=== PATIENT | female | born 1945 | race Caucasian/White ===

== ENCOUNTER → 2018-03-01 | Day surgery (SDC) | payer OTHER ==
[2018-02-25 12:26] LABS: BASOPHILS # (AUTO) 0.1 (0.0-0.1); BASOPHILS % 0.8 % (0.0-1.0); EOSINOPHILS # (AUTO) 0.1 (0.0-0.4); EOSINOPHILS % 0.8 % (0.0-6.0); HEMATOCRIT 48.3 % (34.2-44.1); HEMOGLOBIN 15.1 g/dL (12.0-16.0); LYMPHOCYTES # (AUTO) 2.3 (1.0-3.2); LYMPHOCYTES % 31.8 % (18.0-39.1); MEAN CORPUSCULAR HEMOGLOBIN 26.8 pg (28-32); MEAN CORPUSCULAR HGB CONC 31.3 g/dL (31-35); MEAN CORPUSCULAR VOLUME 85.8 fL (81-99); MONOCYTES # (AUTO) 0.7 (0.2-0.8); NEUTROPHILS # (AUTO) 4.1 (2.1-6.9); NEUTROPHILS % 56.5 % (38.7-80.0); PLATELET COUNT 319 x10e3/uL (140-360); RED BLOOD COUNT 5.63 x10e6/uL (3.6-5.1); RED CELL DISTRIBUTION WIDTH 13.4 % (11.7-14.4)
[2018-02-25 12:43] LABS: INR 2.47; PROTHROMBIN TIME 25.1 seconds (11.9-14.5)
[2018-02-25 12:50] LABS: ALANINE AMINOTRANSFERASE 20 IU/L (0-55); ALBUMIN/GLOBULIN RATIO 1.1 (0.8-2.0); ALKALINE PHOSPHATASE 91 IU/L (40-150); BLOOD UREA NITROGEN 7 mg/dL (7-26); BUN/CREATININE RATIO 9 (6-25); CALCIUM 9.9 mg/dL (8.4-10.2); CARBON DIOXIDE 26 mmol/L (22-29); CHLORIDE 106 mmol/L (98-107); CREATININE, SERUM 0.82 mg/dL (0.57-1.11); EST GLOMERULAR FILTRATION RATE > 60 ML/MIN (60-); GLUCOSE 102 mg/dL (74-118); SODIUM 143 mmol/L (136-145)
--- NOTE | 2018-02-25 13:18 | Diagnostic Imaging Report ---
EXAMINATION: CHEST 2 VIEWS INDICATION: \S\PREOP FOR HEART CATH PROCEDURE \[id number] \S\[id number] COMPARISON: Chest radiograph 01/29/2016 FINDINGS: PA and lateral views TUBES and LINES: None. LUNGS: Lungs are well inflated. Lungs are clear. There is no evidence of pneumonia or pulmonary edema. PLEURA: No pleural effusion or pneumothorax. HEART AND MEDIASTINUM: The cardiomediastinal silhouette is unremarkable. BONES AND SOFT TISSUES: No acute osseous lesion. Soft tissues are unremarkable. UPPER ABDOMEN: No free air under the diaphragm. IMPRESSION: No acute thoracic abnormality. Signed by: DR. Bobby Kirby MD on 02/25/2018 1:15 PM
[2018-03-01] VITALS (17 sets, daily range): BP systolic 99–138; BP diastolic 60–103
[~2018-03-01] VITALS: Ht 165.1 cm; Wt 69.9 kg
[~2018-03-01] MED LIST: CEFUROXIME500 MG PO; DIGOXIN125 MCG PO; DILTIAZEM HCL30 MG PO; FENTANYL CITRATE/PF 100MCG/2 ML INJ ONE; FEOSOL325 MG PO; HEPARIN SOD/SOD CHLORIDE 2,000 ML ONE; IOPAMIDOL 370 MG/ML 200 ML INFUS..BTL INJ ONE; LIDOCAINE HCL 2% LOCAL 20 ML VIAL ONE; LOTEMAX3.5 GM TOP; LOTEMAX5 ML; LOTEMAX5 ML OU; LOVENOX40 MG/0.4 SC; MELATONIN 5 MG1 EAC1 PO; METOPROLOL TART25 MG PO; MIDAZOLAM HCL 2 MG/2 ML VIAL ONE; NRC7.5T PO; OMEPRAZOLE20 MG PO; PRAVASTATIN SOD40 MG PO; REGLAN10 MG PO; SODIUM CHLORIDE 0.9% 1000ML 1,000 ML ONE; TEMAZEPAM15 MG PO; TYLENOL # 31 EA PO; WARFARIN SODIUM1 MG PO; WARFARIN SODIUM3 MG PO; ZOLPIDEM TARTRA10 MG PO
[2018-03-01 08:47] LABS: INR 1.25; PROTHROMBIN TIME 14.8 seconds (11.9-14.5)
--- NOTE | 2018-03-01 16:16 | Operative Report ---
DATE OF PROCEDURE: March 01, 2018 INDICATIONS: 1. Cardiomyopathy. 2. Chest pain. PROCEDURE: Cardiac catheterization. DESCRIPTION OF PROCEDURE: After informed consent, patient was brought to the cardiac catheterization laboratory and placed on the table. Both groins were painted and draped in a sterile fashion. Lidocaine injected into right groin for local anesthesia. Right femoral artery was accessed by Seldinger technique, and a 5-[place] Citizen sheath was placed in the right femoral artery. Left main artery was cannulated using a JL4 5-[place] Citizen catheter. Coronary angiogram was performed and images obtained in multiple views. Attempts were made to cannulate the right coronary artery using a 3DRC catheter, but would not cannulate, so AR1 catheter was used to cannulate the right coronary artery which was arising from the non-coronary cusp. Coronary angiogram was performed and images obtained in multiple views. REPORT: LEFT MAIN: Normal caliber and no significant stenosis noted. LEFT ANTERIOR DESCENDING: Normal caliber and there are no luminal irregularities. First diagonal branch is about a 30% proximal lesion. LEFT CIRCUMFLEX: Normal caliber. No significant stenosis noted. RIGHT CORONARY ARTERY: Normal caliber. Rises from the non-coronary as an aberrant origin from the non-coronary cusp. There is no sig stenosis. LV-GRAM: Diffuse hypokinesis of left ventricle is noted. Overall ejection fraction appears to be about 40%. HEMODYNAMICS: Aortic pressure 134/68. LV pressure 131/2. LVEDP 11. Job#: [id number] MTDD
--- OUTSIDE RECORDS SUMMARY | 2018-03-31 05:54 | XMS REPORT | Continuity of Care Document ---
Author Author Interface Organization Interface Address Unknown Phone Unavailable Problems Problem Status Onset Date Classification Date Reported Comments Source LT KNEE OA, LT KNEE PAIN Active 01/31/2018 [facility] Medications Medication Details Route Status Patient Instructions Ordering Provider Order Date Source Allergies, Adverse Reactions, Alerts Substance Category Reaction Severity Reaction type Status Date Reported Comments Source Immunizations Immunization Date Given Site Status Last Updated Comments Source Results Order Name Results Value Reference Range Date Interpretation Comments Source Knee wo contrast CT Knee wo contrast CT EXAM: CT LEFT KNEE WITHOUT CONTRAST DATE: 02/07/2018 2:42 PM CDT INDICATION: unilateral primary osteoarthritis, left knee - ct knee COMPARISON: None TECHNIQUE: Noncontract helical CT imaging of the left hip, knee, and ankle using Jose Luis protocol. Axial reformats of the hip, knee, and ankle with multiplanar reformats of the knee. DLP: 505 mGy*cm DISCUSSION: Hip: No aggressive appearing bone lesions. Mild degenerative changes of the hip joint. No excessive hip joint fluid. No soft tissue mass. Imaged pelvic muscle bulk is normal. Knee: No aggressive appearing bone lesions. Joint space narrowing of the medial compartment with associated subarticular sclerosis and osteophytes. Small osteophytes without joint space narrowing of the lateral patellofemoral compartments. Small knee joint effusion. No soft tissue mass. Imaged muscle bulk is normal. Ankle. No aggressive appearing bone lesions. Mild degenerative changes of the ankle. No excessive joint fluid. No soft tissue mass. Imaged muscle bulk is normal. No tendon malalignment or obvious tendon tear. IMPRESSION: 1. Severe osteoarthrosis of the left knee. 2. No aggressive bone lesions or soft tissue mass identified. 02/07/2018 - - This report was dictated by a Sample Box Maker/Fellow. I have personally reviewed the images as well as the Resident's interpretation and agree with the findings. Read by: Prashanth Alfred MD Resident: Prashanth Alfred MD Dictated Date/time: 02/07/18 15:54 Electronically Signed by: Stanley Soni MD 02/08/18 04 :53 FINAL REPORT [facility] Vital Signs Vital Sign Value Date Comments Source Encounters Location Location Details Encounter Type Encounter Number Reason For Visit Attending Provider ADM Date DC Date Status Source Procedures Procedure Code Date Perfomer Comments Source
--- OUTSIDE RECORDS SUMMARY | 2018-03-31 05:54 | XMS REPORT ---
Author Author [facility] Address Unknown Phone Unavailable Care Team Providers [employer] Advisor Name Role Phone YANIRA ART Unavailable Unavailable Problems This patient has no known problems. Allergies, Adverse Reactions, Alerts This patient has no known allergies or adverse reactions. Medications This patient has no known medications. Results Test Description Test Time Test Comments Text Results Atomic Results Result Comments CHEST 2 VIEWS 2018-02-25 13:14:00 [place] [id number] [place] [id number] Patient Name: DERIC STEVENSON MR #: [id number] : 1945 Age/Sex: 72/F Req #: [id number] Adm Physician: Ordered by: YANIRA ART MD Report #: [id number] Location: [facility] Room/Bed: Procedure: [id number] DX/CHEST 2 VIEWS Exam Date: 02/25/18 Exam Time: 1245 REPORT STATUS: Signed EXAMINATION: CHEST 2 VIEWS INDICATION: COMPARISON: Chest radiograph 01/28 FINDINGS: PA and lateral views TUBES and LINES: None. LUNGS: Lungs are well inflated. Lungs are clear. There is no evidence of pneumonia or pulmonary edema. PLEURA: No pleural effusion or pneumothorax. HEART AND MEDIASTINUM: The cardiomediastinal silhouette is unremarkable. BONES AND SOFT TISSUES: No acute osseous lesion. Soft tissues are unremarkable. UPPER ABDOMEN: No free air under the diaphragm. IMPRESSION: No acute thoracic abnormality. Signed by: DR. Bobby Gonzalez MD on 02/25/2018 1:15 PM Dictated By: BOBBY GONZALEZ MD 1315 Transcribed By: ALEX on 02/25/18 1315 COPY TO: YANIRA ART MD
== END | disposition home or self-care (01) ==
LOC: CATH LAB 07:04
DX: I25.10 Atherosclerotic heart disease of native coronary artery without angina pectoris (principal); I42.9 Cardiomyopathy, unspecified; E78.5 Hyperlipidemia, unspecified; I48.91 Unspecified atrial fibrillation; M19.90 Unspecified osteoarthritis, unspecified site; I10 Essential (primary) hypertension; Z01.810 Encounter for preprocedural cardiovascular examination; Z01.812 Encounter for preprocedural laboratory examination; Z01.818 Encounter for other preprocedural examination; Z79.01 Long term (current) use of anticoagulants
CPT/HCPCS: 36415 ×2; 71046; 80053; 85025; 85610 ×2; 93005; 93458; J2001; J2250; J7030; Q9967

== ENCOUNTER 2018-08-12 11:47 | Observation (INO) | payer MEDICARE, OTHER ==
[~2018-08-12] VITALS: Ht 165.1 cm; Wt 69.9 kg
[~2018-08-12 11:47] MED LIST changes: -FENTANYL CITRATE/PF 100MCG/2 ML INJ ONE; -HEPARIN SOD/SOD CHLORIDE 2,000 ML ONE; -IOPAMIDOL 370 MG/ML 200 ML INFUS..BTL INJ ONE; -LIDOCAINE HCL 2% LOCAL 20 ML VIAL ONE; -MIDAZOLAM HCL 2 MG/2 ML VIAL ONE; -SODIUM CHLORIDE 0.9% 1000ML 1,000 ML ONE
--- OUTSIDE RECORDS SUMMARY | 2018-08-12 11:51 | XMS REPORT | Continuity of Care Document ---
Author Author Gita thomas Organization Interface Address Unknown Phone Unavailable Problems Problem Status Onset Date Classification Date Reported Comments Source CHEST PAIN Active 06/18/2018 [facility] AFIB W/ RVR Active 06/18/2018 [facility] LT KNEE OA, LT KNEE PAIN Active 01/31/2018 [facility] UNSPECIFIED ATRIAL FIBRILLATION Active [facility] Medications Medication Details Route Status Patient Instructions Ordering Provider Order Date Source Allergies, Adverse Reactions, Alerts Substance Category Reaction Severity Reaction type Status Date Reported Comments Source Immunizations Immunization Date Given Site Status Last Updated Comments Source Results Order Name Results Value Reference Range Date Interpretation Comments Source Chest 1view DX Chest 1view DX Clinical Indication: - CHEST PAIN; Comparison: None FINDINGS: The portable AP single view radiograph provided for review. The exam demonstrates normal lung volumes without interstitial or airspace opacities, pleural effusions or pneumothorax. Mild atelectasis is bilateral lung bases. A linear line lateral right lower chest probably artifact The heart size and pulmonary vasculature are normal. The trachea is midline. There are no clinically significant osseous abnormalities noted. IMPRESSION: Mild bibasilar atelectasis. SL: [email or web address] 06/18/2018 - - Read by: Jamar Orozco MD Dictated Date/time: 06/18/18 05:49 Electronically Signed by: Jamar Orozco MD 06/18/18 05:50 FINAL REPORT [facility] Knee wo contrast CT Knee wo contrast [...] - This report was dictated by a Print Line Feeder/Fellow. I have personally reviewed the images as well as the Resident's interpretation and agree with the findings. Read by: Prashanth Alfred MD Resident: Prsahanth Alfred MD Dictated Date/time: 02/07/18 15:54 Electronically Signed by: Stanley Soni MD 02/08/18 04:53 FINAL REPORT [facility] Vital Signs Vital Sign Value Date Comments Source Encounters Location Location Details Encounter Type Encounter Number Reason For Visit Attending Provider ADM Date DC Date Status Source Procedures Procedure Code Date Perfomer Comments Source
[2018-08-12] MEDS ORDERED: MECLIZINE HCL 12.5 MG TAB PO ONE (12:15)
[2018-08-12] MEDS ORDERED: SODIUM CHLORIDE 0.9% 1000ML 1,000 ML IV ONE (12:15)
[2018-08-12] MEDS ORDERED: METOCLOPRAMIDE HCL 10 MG/2ML VIAL IV ONE (12:15)
[2018-08-12 12:29] LABS: BASOPHILS # (AUTO) 0.1 (0.0-0.1); BASOPHILS % 0.4 % (0.0-1.0); EOSINOPHILS # (AUTO) 0.1 (0.0-0.4); EOSINOPHILS % 0.8 % (0.0-6.0); HEMATOCRIT 45.3 % (34.2-44.1); HEMOGLOBIN 14.8 g/dL (12.0-16.0); LYMPHOCYTES # (AUTO) 1.6 (1.0-3.2); LYMPHOCYTES % 13.9 % (18.0-39.1); MEAN CORPUSCULAR HGB CONC 32.7 g/dL (31-35); MEAN CORPUSCULAR VOLUME 82.7 fL (81-99); MONOCYTES # (AUTO) 0.8 (0.2-0.8); NEUTROPHILS % 77.6 % (38.7-80.0); PLATELET COUNT 347 x10e3/uL (140-360); RED BLOOD COUNT 5.48 x10e6/uL (3.6-5.1); RED CELL DISTRIBUTION WIDTH 13.8 % (11.7-14.4)
[2018-08-12 12:50] LABS: ALANINE AMINOTRANSFERASE 27 IU/L (0-55); ALBUMIN 3.8 g/dL (3.5-5.0); ALBUMIN/GLOBULIN RATIO 1.2 (0.8-2.0); ALKALINE PHOSPHATASE 102 IU/L (40-150); ANION GAP 17.2 mmol/L (8-16); BLOOD UREA NITROGEN 11 mg/dL (7-26); BUN/CREATININE RATIO 13 (6-25); CALCIUM 9.7 mg/dL (8.4-10.2); CARBON DIOXIDE 24 mmol/L (22-29); CHLORIDE 107 mmol/L (98-107); CREATININE, SERUM 0.83 mg/dL (0.57-1.11); EST GLOMERULAR FILTRATION RATE > 60 ML/MIN (60-); GLUCOSE 147 mg/dL (74-118); MAGNESIUM 2.1 MG/DL (1.3-2.1); PHOSPHORUS 1.9 MG/DL (2.3-4.7); POTASSIUM 4.2 mmol/L (3.5-5.1); SODIUM 144 mmol/L (136-145)
[2018-08-12 13:11] LABS: THYROID STIMULATING HORMONE 2.717 uIU/mL (0.350-4.940)
[2018-08-12] MEDS ORDERED: POTASSIUM PHOSPHATE 20 MM in SODIUM CHLORIDE 0.9% 250ML 250 ML IV ONE (15:00)
[2018-08-12] MEDS ORDERED: DEXAMETHASONE SOD PHOS 10 MG/1 ML VIAL IV ONE (15:30)
[2018-08-12] MEDS ORDERED: ONDANSETRON HCL INJ 2MG/ML 2ML 2 MG/ML VIAL IV ONE (15:35)
[2018-08-12] MEDS ORDERED: SCOPOLAMINE 1.5 MG PATCH TOP ONE (15:45)
[2018-08-12] MEDS ORDERED: ONDANSETRON HCL INJ 2MG/ML 2ML 2 MG/ML VIAL IV PRN (16:15)
[2018-08-12] MEDS ORDERED: SODIUM CHLORIDE FLUSH 10 ML SYR INJ PRN (16:15)
[2018-08-12] MEDS ORDERED: SODIUM CHLORIDE 0.9% 1000ML 1,000 ML IV SCH (16:15)
[2018-08-12] MEDS ORDERED: MECLIZINE HCL 12.5 MG TAB PO PRN (16:15)
--- NOTE | 2018-08-12 16:55 | Diagnostic Imaging Report ---
EXAMINATION: Head CT HISTORY: Dizziness. COMPARISON: None. TECHNIQUE: Multidetector axial images were obtained without contrast from the foramen magnum to the vertex . The images were reconstructed using brain and bone algorithms. Thin section brain images were reformatted into coronal and sagittal planes. Image quality: Motion/streaking artifact limits the evaluation of the skull base and posterior cranial fossa. Dose modulation, iterative reconstruction, and/or weight based adjustment of the mA/kV was utilized to reduce the radiation dose to as low as reasonably achievable. FINDINGS: Parenchyma: 1. Few scattered white matter hypodensities, most likely minimal, age related chronic microvascular ischemic changes. 2. No mass or hemorrhage. No CT evidence of acute territorial vascular insult. Extra-axial spaces:No abnormal density. No extra-axial fluid collections Brain volume: Normal for age. Ventricles: No hydrocephalus or displacement. Arteries: No density suggestive of thrombus. Dural sinuses: No abnormal density. Extra-axial spaces: No abnormal density. Foramen magnum: No mass, Chiari malformation, or basilar invagination. Sella: No obvious mass. Paranasal/mastoid sinuses: Imaged portions unremarkable. Skull/Scalp: No lytic or blastic lesions. No fractures. IMPRESSION: No acute intracranial abnormalities, particularly no mass, hemorrhage or infarct. Signed by: Dr. Jesenia Bernstein M.D. on 08/12/2018 4:52 PM
[2018-08-12 20:50] VITALS: BP 120/75
--- NOTE | 2018-08-12 20:50 | NUR ---
patient is a new admit that arrived via wheelchair. patient is alert and oriented. denies pain or discomfort. patient has been helped into the bed. bed is in the lowest position and call melendez is within reach. will continue to monitor patient.
--- NOTE | 2018-08-12 21:00 | NUR ---
Patient states she takes Tamazepam at home to help her sleep. MD notified. Received new orders to restart home meds. Patient states she does not know the correct dose of her medications. States her will bring the medication list in the morning. Patient notified to hand medication list over to nurse as soon as brings in list.
[2018-08-12] MEDS ORDERED: XARELTO10 MG PO (21:51)
[2018-08-12] MEDS: TEMAZEPAM 15 MG CAP PO SCH (23:14)
[2018-08-13] VITALS (7 sets, daily range): BP systolic 99–126; BP diastolic 57–77
[2018-08-13 05:43] LABS: BASOPHILS # (AUTO) 0.1 (0.0-0.1); BASOPHILS % 0.6 % (0.0-1.0); EOSINOPHILS # (AUTO) 0.2 (0.0-0.4); EOSINOPHILS % 2.1 % (0.0-6.0); HEMATOCRIT 41.2 % (34.2-44.1); HEMOGLOBIN 13.3 g/dL (12.0-16.0); LYMPHOCYTES # (AUTO) 2.6 (1.0-3.2); LYMPHOCYTES % 30.7 % (18.0-39.1); MEAN CORPUSCULAR HEMOGLOBIN 26.9 pg (28-32); MEAN CORPUSCULAR HGB CONC 32.3 g/dL (31-35); MEAN CORPUSCULAR VOLUME 83.4 fL (81-99); MONOCYTES # (AUTO) 0.9 (0.2-0.8); MONOCYTES % 10.4 % (4.4-11.3); NEUTROPHILS # (AUTO) 4.8 (2.1-6.9); PLATELET COUNT 305 x10e3/uL (140-360); RED BLOOD COUNT 4.94 x10e6/uL (3.6-5.1); RED CELL DISTRIBUTION WIDTH 14.1 % (11.7-14.4)
[2018-08-13 06:08] LABS: ALANINE AMINOTRANSFERASE 19 IU/L (0-55); ALBUMIN 3.2 g/dL (3.5-5.0); ALBUMIN/GLOBULIN RATIO 1.1 (0.8-2.0); ALKALINE PHOSPHATASE 82 IU/L (40-150); BLOOD UREA NITROGEN 8 mg/dL (7-26); BUN/CREATININE RATIO 11 (6-25); CARBON DIOXIDE 23 mmol/L (22-29); CHLORIDE 111 mmol/L (98-107); CREATININE, SERUM 0.76 mg/dL (0.57-1.11); EST GLOMERULAR FILTRATION RATE > 60 ML/MIN (60-); GLUCOSE 96 mg/dL (74-118); SODIUM 144 mmol/L (136-145)
--- NOTE | 2018-08-13 06:49 | NUR ---
report given to day nurse. patient is resting comfortably in bed. bed is in lowest position and call melendez is within reach. will continue to monitor patient.
--- NOTE | 2018-08-13 07:31 | NUR ---
Patient resting in bed, Alert with no distress, denies any chest pain or SOB, c/o mild dizziness Call light in reach
[2018-08-13] MEDS ORDERED: MECLIZINE HCL 12.5 MG TAB PO PRN (12:15)
[2018-08-13] MEDS: MECLIZINE HCL 12.5 MG TAB PO SCH ×3 (12:51→23:59)
[2018-08-13 13:18] LABS: BILIRUBIN,URINE NEGATIVE (NEGATIVE); CLARITY,URINE CLEAR (CLEAR); COLOR,URINE STRAW (YELLOW); KETONES,URINE NEGATIVE (NEGATIVE); LEUKOCYTE ESTERASE ,URINE NEGATIVE (NEGATIVE); NITRITE,URINE NEGATIVE (NEGATIVE); PROTEIN,URINE DIPSTICK NEGATIVE (NEGATIVE); URINE UROBILINOGEN 0.2 mg/dL (0.2 - 1)
[2018-08-13 13:32] LABS: EPITHELIAL CELLS,URINE MANY /LPF; WBC,URINE (MAN) 0-5 /HPF (0-5)
[2018-08-13] MEDS ORDERED: RIVAROXABAN 10 MG TABLET PO SCH (17:00)
--- NOTE | 2018-08-13 18:38 | NUR ---
patient resting in bed, tolerated dinner, dizziness getting better she said, denies any pain, no distress noted
--- NOTE | 2018-08-13 20:25 | NUR ---
Patient is AxO x 4. Patient has no pain or distress. Call melendez within reach. Received report from day shift nurse.
[2018-08-13] MEDS: TEMAZEPAM 15 MG CAP PO SCH (21:15)
[2018-08-14] VITALS: BP 120/69
[2018-08-14 01:43] VITALS: BP 120/69
[2018-08-14 04:00] VITALS: BP 120/67
[2018-08-14] MEDS: MECLIZINE HCL 12.5 MG TAB PO SCH (05:23)
--- NOTE | 2018-08-14 07:00 | NUR ---
Received patient mid fowlers position, side rails upx2, call light within reach, family at bedside. Resting with eyes closed. Arousable to verbal stimuli. Respirations even and unlabored. Will continue to monitor.
--- NOTE | 2018-08-14 07:17 | NUR ---
REPORT WAS GIVEN TO ONCOMING NURSE. PATIENT ASLEEP, NO PAIN OR DISTRESS. CALL CHRISTIAN WITHIN REACH.
[2018-08-14 07:28] VITALS: BP 117/66
[2018-08-14 08:05] VITALS: BP 117/66
--- NOTE | 2018-08-14 08:52 | NUR ---
Met with Dr. Hilario regarding day 2 observation status, and requesting dc plan. He states he needs to see the patient, but he anticipates discharging home today.
[2018-08-14] MEDS ORDERED: LOTEPREDNOL ETABONATE(OPTH) 5 ML BTL OP SCH (09:00)
[2018-08-14] MEDS ORDERED: MECLIZINE HCL12.5 MG PO (09:41)
[2018-08-14] MEDS ORDERED: claritin PO (09:42)
[2018-08-14] MEDS ORDERED: CLINDAMYCIN HC150 MG PO (09:43)
[2018-08-14] MEDS ORDERED: CIPROFLOXACIN-DEXAMETHASONE (OTIC) 7.5 ML BOTTLE OT SCH (09:45)
[2018-08-14] MEDS ORDERED: CLINDAMYCIN HCL 150 MG CAP PO ONE (09:45)
[2018-08-14] MEDS ORDERED: LORATADINE 10 MG TAB PO SCH (09:45)
[2018-08-14] MEDS ORDERED: CEFTRIAXONE SOD 1 GM/NS 50 ML 50 ML IV SCH (10:00)
--- NOTE | 2018-08-14 11:00 | NUR ---
left AC IV discontinued. No signs of infiltration noted. Taken via wheelchair by PCT to personal car. Accompanied by . AAOX4 to time, person, place, situation. Respirations even and unlabored. RX, discharge instructions and all personal belongings taken with patient.
--- NOTE | 2018-08-14 11:01 | Discharge Summary ---
PRIMARY CARE PHYSICIAN: Dr. Leland Hill. FINAL DIAGNOSES 1. Benign positional vertigo symptoms. 2. Ear infection. 3. Baseline pacemaker pacing. SUMMARY: A 72-year-old female stable, apparently with positional vertigo, dizziness while lying down, turning her head, and sitting up. The patient has some improvement with meclizine, but not completely resolved. She does complain of some right ear symptoms of pain. The patient has previous problem with dizziness when her ear was infected. The patient was given Rocephin 1 gram IV times x1, clindamycin 300 mg 3 times a day, along with that Ciprodex Otic 3 drops twice a day to the right ear. The patient to discharge home today on observation. She will continue with treatment at home. DISCHARGE MEDICATIONS 1. Clindamycin 300 mg 3 times a day for 5 days. 2. Claritin 10 mg daily. 3. Ciprodex Otic 3 drops twice a day to right ear. 4. Meclizine 12.5 mg q.4 as needed for dizziness. The patient is otherwise stable. Discharged home today. Follow up with Dr. Leland Hill next week. Job#: [id number] SONG
[2018-08-14 11:13] VITALS: BP 132/80
== END 2018-08-14 11:00 | disposition home or self-care (01) ==
LOC: ER 11:47 → ERHOLD 16:26 → IMCU 20:38
PROVIDERS: ADMIT Internal Medicine; ATTEND Internal Medicine
DX: H81.13 Benign paroxysmal vertigo, bilateral (principal); E83.39 Other disorders of phosphorus metabolism; Z82.49 Family history of ischemic heart disease and other diseases of the circulatory system; I48.91 Unspecified atrial fibrillation; Z95.0 Presence of cardiac pacemaker; G47.00 Insomnia, unspecified; H66.91 Otitis media, unspecified, right ear; Z88.8 Allergy status to other drugs, medicaments and biological substances
CPT/HCPCS: 36415 ×2; 70450; 80053 ×2; 81001; 83735; 84100; 84443; 84484; 85025 ×2; 93005 ×2; 99284; G0378 ×3; J0696; J2765; J7030; J7050; J8597 ×3

== ENCOUNTER 2020-10-02 08:44 | Inpatient (IN) | payer MEDICARE ==
[2020-09-27 11:57] LABS: BASOPHILS # (AUTO) 0.1 (0.0-0.1); BASOPHILS % 0.5 % (0.0-1.0); EOSINOPHILS # (AUTO) 0.1 (0.0-0.4); EOSINOPHILS % 0.9 % (0.0-6.0); HEMATOCRIT 44.6 % (34.2-44.1); HEMOGLOBIN 14.1 g/dL (12.0-16.0); LYMPHOCYTES # (AUTO) 2.8 (1.0-3.2); LYMPHOCYTES % 26.9 % (18.0-39.1); MEAN CORPUSCULAR HEMOGLOBIN 27.3 pg (28-32); MEAN CORPUSCULAR HGB CONC 31.6 g/dL (31-35); MEAN CORPUSCULAR VOLUME 86.4 fL (81-99); MONOCYTES # (AUTO) 0.8 (0.2-0.8); NEUTROPHILS # (AUTO) 6.6 (2.1-6.9); NEUTROPHILS % 63.5 % (38.7-80.0); PLATELET COUNT 384 x10e3/uL (140-360); RED BLOOD COUNT 5.16 x10e6/uL (3.6-5.1); RED CELL DISTRIBUTION WIDTH 13.5 % (11.7-14.4)
[2020-09-27 12:11] LABS: ANION GAP 12.9 mmol/L (8-16); BLOOD UREA NITROGEN 11 mg/dL (7-26); BUN/CREATININE RATIO 12 (6-25); CALCIUM 9.1 mg/dL (8.4-10.2); CARBON DIOXIDE 26 mmol/L (22-29); CHLORIDE 108 mmol/L (98-107); EST GLOMERULAR FILTRATION RATE > 60 ML/MIN (60-); GLUCOSE 129 mg/dL (74-118); POTASSIUM 3.9 mmol/L (3.5-5.1); SODIUM 143 mmol/L (136-145)
[~2020-10-02] VITALS: Ht 165.1 cm; Wt 82.6 kg
[~2020-10-02 08:44] MED LIST changes: +ATORVASTATIN CA20 MG PO; +CLINDAMYCIN HC150 MG PO; +MECLIZINE HCL12.5 MG PO; +OMEPRAZOLE40 MG PO; +XARELTO10 MG PO; +claritin PO
[2020-10-02] MEDS ORDERED: PIPERACILLIN/TAZOBAC 3.375 GM VIAL ONE (09:20)
[2020-10-02] MEDS ORDERED: SODIUM CHLORIDE 0.9% 50ML 50 ML ONE (09:20)
[2020-10-02] MEDS ORDERED: GENTAMICIN 80MG/NS 100 ML 200 ML IV ONE (09:21)
[2020-10-02] MEDS ORDERED: SILVER SULFADIAZINE 50GM CREAM ONE (10:46)
[2020-10-02] MEDS ORDERED: GENTAMICIN SULFATE 40 MG/ML 2 ML VIAL ONE (10:47)
[2020-10-02] MEDS ORDERED: BUPIVACAINE 0.25% 30ML SDV ONE (10:47)
[2020-10-02] MEDS ORDERED: INDIGOTINDISULFONATE SODIUM 8 MG/ML AMP IJ ONE (10:47)
[2020-10-02] MEDS ORDERED: LIDOCAINE 1% W/EPINEPHRINE 20 ML VIAL ONE (10:47)
[2020-10-02] MEDS ORDERED: IOPAMIDOL 300MG/ML 50ML INFUS..BTL IV ONE (10:48)
[2020-10-02] MEDS ORDERED: ONDANSETRON HCL INJ 2MG/ML 2ML 2 MG/ML VIAL IV PRN (12:00)
[2020-10-02] MEDS ORDERED: DIPHENHYDRAMINE HCL 25 MG CAP PO PRN (12:00)
[2020-10-02] MEDS ORDERED: MORPHINE SULFATE 1 MG/ML 30ML PCA IV PRN (12:00)
[2020-10-02] MEDS ORDERED: PHENAZOPYRIDINE HCL 100 MG TAB PO PRN (12:00)
[2020-10-02] MEDS ORDERED: ACETAMINOPHEN 1000 MG/100 ML IV PRN (12:00)
[2020-10-02] MEDS ORDERED: NALOXONE HCL INJ 0.4 MG/ML AMP IV PRN (12:00)
[2020-10-02] MEDS ORDERED: FENTANYL CITRATE/PF 100MCG/2 ML INJ ONE (13:47)
[2020-10-02 15:00] VITALS: BP 115/65
[2020-10-02 16:01] LABS: BASOPHILS % 0.3 % (0.0-1.0); HEMATOCRIT 40.5 % (34.2-44.1); HEMOGLOBIN 12.8 g/dL (12.0-16.0); LYMPHOCYTES % 6.9 % (18.0-39.1); MEAN CORPUSCULAR HEMOGLOBIN 27.6 pg (28-32); MEAN CORPUSCULAR HGB CONC 31.6 g/dL (31-35); MEAN CORPUSCULAR VOLUME 87.3 fL (81-99); MONOCYTES # (AUTO) 0.2 (0.2-0.8); MONOCYTES % 1.5 % (4.4-11.3); NEUTROPHILS # (AUTO) 13.6 (2.1-6.9); PLATELET COUNT 325 x10e3/uL (140-360); RED BLOOD COUNT 4.64 x10e6/uL (3.6-5.1); RED CELL DISTRIBUTION WIDTH 13.5 % (11.7-14.4)
[2020-10-02 16:17] LABS: ANION GAP 14.4 mmol/L (8-16); BLOOD UREA NITROGEN 11 mg/dL (7-26); BUN/CREATININE RATIO 14 (6-25); CALCIUM 8.2 mg/dL (8.4-10.2); CARBON DIOXIDE 25 mmol/L (22-29); CHLORIDE 108 mmol/L (98-107); CREATININE, SERUM 0.76 mg/dL (0.57-1.11); EST GLOMERULAR FILTRATION RATE > 60 ML/MIN (60-); GLUCOSE 145 mg/dL (74-118); POTASSIUM 3.4 mmol/L (3.5-5.1); SODIUM 144 mmol/L (136-145)
[2020-10-02] MEDS ORDERED: NEOSTIGMINE 1 MG/ML 10ML VIAL ONE (16:29)
[2020-10-02] MEDS ORDERED: LIDOCAINE HCL 2% LOCAL INJ 5 ML SDV VIAL INJ ONE (16:29)
[2020-10-02] MEDS ORDERED: GLYCOPYRROLATE INJ 0.2 MG/ML VIAL ONE (16:29)
[2020-10-02] MEDS ORDERED: SEVOFLURANE INHAL SOLN 250 ML PEN BTL ONE (16:29)
[2020-10-02] MEDS ORDERED: PROPOFOL IV EMULSION 10 MG/ML 20 ML VIAL ONE (16:29)
[2020-10-02] MEDS ORDERED: ROCURONIUM BROMIDE 10 MG/ML 5ML VIAL IV ONE (16:29)
[2020-10-02] MEDS ORDERED: ONDANSETRON HCL INJ 2MG/ML 2ML 2 MG/ML VIAL ONE (16:29)
[2020-10-02] MEDS ORDERED: DEXAMETHASONE SOD PHOS INJ 4 MG/ML VIAL ONE (16:29)
[2020-10-02 16:36] VITALS: BP 116/71
[2020-10-02] MEDS: D5.45%NS/KCL 20MEQ 1,000 ML IV SCH (17:25)
[2020-10-02] MEDS: DOCUSATE SODIUM 100 MG CAP PO SCH (17:25)
[2020-10-02 19:41] VITALS: BP 103/65
[2020-10-02 20:30] VITALS: BP 103/65
[2020-10-02] MEDS: PIPERACILLIN/TAZOBACTAM 2.25 GM in SODIUM CHLORIDE 0.9% 50ML 50 ML IV SCH (20:32)
[2020-10-03] VITALS (10 sets, daily range): BP systolic 97–113; BP diastolic 60–66
[2020-10-03] MEDS: D5.45%NS/KCL 20MEQ 1,000 ML IV SCH ×2 (01:49→08:27)
[2020-10-03] MEDS: PIPERACILLIN/TAZOBACTAM 2.25 GM in SODIUM CHLORIDE 0.9% 50ML 50 ML IV SCH ×3 (04:22→21:02)
[2020-10-03 04:47] LABS: BASOPHILS % 0.2 % (0.0-1.0); HEMATOCRIT 39.3 % (34.2-44.1); HEMOGLOBIN 12.4 g/dL (12.0-16.0); LYMPHOCYTES # (AUTO) 0.9 (1.0-3.2); LYMPHOCYTES % 4.9 % (18.0-39.1); MEAN CORPUSCULAR HEMOGLOBIN 27.4 pg (28-32); MEAN CORPUSCULAR HGB CONC 31.6 g/dL (31-35); MEAN CORPUSCULAR VOLUME 86.8 fL (81-99); MONOCYTES # (AUTO) 0.9 (0.2-0.8); MONOCYTES % 4.8 % (4.4-11.3); NEUTROPHILS # (AUTO) 16.8 (2.1-6.9); NEUTROPHILS % 89.5 % (38.7-80.0); PLATELET COUNT 312 x10e3/uL (140-360); RED BLOOD COUNT 4.53 x10e6/uL (3.6-5.1); RED CELL DISTRIBUTION WIDTH 13.4 % (11.7-14.4)
[2020-10-03 05:12] LABS: ANION GAP 10.2 mmol/L (8-16); BLOOD UREA NITROGEN 9 mg/dL (7-26); BUN/CREATININE RATIO 12 (6-25); CALCIUM 8.3 mg/dL (8.4-10.2); CARBON DIOXIDE 23 mmol/L (22-29); CHLORIDE 111 mmol/L (98-107); CREATININE, SERUM 0.73 mg/dL (0.57-1.11); EST GLOMERULAR FILTRATION RATE > 60 ML/MIN (60-); GLUCOSE 202 mg/dL (74-118); POTASSIUM 4.2 mmol/L (3.5-5.1); SODIUM 140 mmol/L (136-145)
[2020-10-03] MEDS: DOCUSATE SODIUM 100 MG CAP PO SCH ×2 (08:27→17:00)
[2020-10-03] MEDS ORDERED: MECLIZINE HCL 12.5 MG TAB PO PRN (08:45)
[2020-10-03] MEDS ORDERED: ONDANSETRON HCL INJ 2MG/ML 2ML 2 MG/ML VIAL IV PRN (08:45)
[2020-10-03] MEDS: LOTEPREDNOL ETABONATE(OPTH) 5 ML BTL OP SCH (12:02)
[2020-10-03] MEDS: SODIUM BICARBONATE 8.4% 50 ML in SODIUM CHLORIDE 0.45% 1,000 ML IV SCH ×2 (12:02→21:02)
[2020-10-03] MEDS: PANTOPRAZOLE SOD 40 MG TABEC PO SCH (12:02)
[2020-10-03] MEDS: TEMAZEPAM 15 MG CAP PO SCH (21:03)
[2020-10-03] MEDS: ATORVASTATIN 20 MG TAB PO SCH (21:03)
[2020-10-03] MEDS ORDERED: FAMOTIDINE 20 MG TAB PO ONE (21:15)
[2020-10-04] VITALS (8 sets, daily range): BP systolic 93–129; BP diastolic 57–85
[2020-10-04] MEDS: PIPERACILLIN/TAZOBACTAM 2.25 GM in SODIUM CHLORIDE 0.9% 50ML 50 ML IV SCH ×3 (03:59→20:42)
[2020-10-04 06:00] LABS: BASOPHILS % 0.1 % (0.0-1.0); EOSINOPHILS # (AUTO) 0.1 (0.0-0.4); EOSINOPHILS % 0.4 % (0.0-6.0); HEMATOCRIT 36.7 % (34.2-44.1); HEMOGLOBIN 11.3 g/dL (12.0-16.0); LYMPHOCYTES # (AUTO) 2.4 (1.0-3.2); LYMPHOCYTES % 15.4 % (18.0-39.1); MEAN CORPUSCULAR HEMOGLOBIN 27.2 pg (28-32); MEAN CORPUSCULAR HGB CONC 30.8 g/dL (31-35); MEAN CORPUSCULAR VOLUME 88.4 fL (81-99); MONOCYTES # (AUTO) 1.3 (0.2-0.8); MONOCYTES % 8.6 % (4.4-11.3); NEUTROPHILS # (AUTO) 11.6 (2.1-6.9); NEUTROPHILS % 75.2 % (38.7-80.0); PLATELET COUNT 259 x10e3/uL (140-360); RED BLOOD COUNT 4.15 x10e6/uL (3.6-5.1); RED CELL DISTRIBUTION WIDTH 13.6 % (11.7-14.4)
[2020-10-04] MEDS: SODIUM BICARBONATE 8.4% 50 ML in SODIUM CHLORIDE 0.45% 1,000 ML IV SCH (06:03)
[2020-10-04 06:06] LABS: ANION GAP 11.8 mmol/L (8-16); BLOOD UREA NITROGEN 9 mg/dL (7-26); BUN/CREATININE RATIO 12 (6-25); CARBON DIOXIDE 27 mmol/L (22-29); CHLORIDE 108 mmol/L (98-107); CREATININE, SERUM 0.76 mg/dL (0.57-1.11); EST GLOMERULAR FILTRATION RATE > 60 ML/MIN (60-); GLUCOSE 101 mg/dL (74-118); POTASSIUM 3.8 mmol/L (3.5-5.1); SODIUM 143 mmol/L (136-145)
[2020-10-04] MEDS ORDERED: MORPHINE SULFATE INJ 4 MG/ML INJ 1ML IV PRN (07:00)
[2020-10-04] MEDS: CELECOXIB 100 MG CAP PO SCH ×2 (08:00→16:27)
[2020-10-04] MEDS: FAMOTIDINE 20 MG TAB PO SCH ×2 (08:52→16:39)
[2020-10-04] MEDS: PANTOPRAZOLE SOD 40 MG TABEC PO SCH (08:53)
[2020-10-04] MEDS: LOTEPREDNOL ETABONATE(OPTH) 5 ML BTL OP SCH (08:54)
[2020-10-04] MEDS: DOCUSATE SODIUM 100 MG CAP PO SCH ×2 (08:56→16:27)
[2020-10-04] MEDS: GABAPENTIN 100 MG CAP PO SCH ×2 (09:00→16:27)
[2020-10-04] MEDS: MAGNESIUM OXIDE 400 MG TAB PO SCH ×2 (11:00→16:39)
[2020-10-04] MEDS: ACETAMINOPHEN/CODEINE 300MG - 30MG TAB PO PRN ×2 (12:25→17:10)
[2020-10-04] MEDS: TEMAZEPAM 15 MG CAP PO SCH (20:42)
[2020-10-04] MEDS: ATORVASTATIN 20 MG TAB PO SCH (20:42)
[2020-10-05 00:14] VITALS: BP 109/69
[2020-10-05 04:00] VITALS: BP 127/73
[2020-10-05] MEDS: PIPERACILLIN/TAZOBACTAM 2.25 GM in SODIUM CHLORIDE 0.9% 50ML 50 ML IV SCH (04:17)
[2020-10-05 06:51] LABS: BASOPHILS # (AUTO) 0.1 (0.0-0.1); BASOPHILS % 0.4 % (0.0-1.0); EOSINOPHILS # (AUTO) 0.2 (0.0-0.4); EOSINOPHILS % 1.2 % (0.0-6.0); HEMATOCRIT 37.2 % (34.2-44.1); HEMOGLOBIN 11.9 g/dL (12.0-16.0); LYMPHOCYTES % 15.2 % (18.0-39.1); MEAN CORPUSCULAR HEMOGLOBIN 27.5 pg (28-32); MEAN CORPUSCULAR VOLUME 85.9 fL (81-99); MONOCYTES # (AUTO) 1.4 (0.2-0.8); MONOCYTES % 10.7 % (4.4-11.3); NEUTROPHILS # (AUTO) 9.7 (2.1-6.9); NEUTROPHILS % 72.1 % (38.7-80.0); PLATELET COUNT 250 x10e3/uL (140-360); RED BLOOD COUNT 4.33 x10e6/uL (3.6-5.1); RED CELL DISTRIBUTION WIDTH 13.6 % (11.7-14.4)
[2020-10-05 07:04] LABS: ANION GAP 12.4 mmol/L (8-16); BLOOD UREA NITROGEN 9 mg/dL (7-26); BUN/CREATININE RATIO 12 (6-25); CALCIUM 8.3 mg/dL (8.4-10.2); CARBON DIOXIDE 28 mmol/L (22-29); CHLORIDE 108 mmol/L (98-107); CREATININE, SERUM 0.76 mg/dL (0.57-1.11); EST GLOMERULAR FILTRATION RATE > 60 ML/MIN (60-); GLUCOSE 121 mg/dL (74-118); POTASSIUM 3.4 mmol/L (3.5-5.1); SODIUM 145 mmol/L (136-145)
[2020-10-05 07:26] VITALS: BP 127/73
[2020-10-05] MEDS ORDERED: POTASSIUM CHLORIDE 20 MEQ TAB CR PO STA (07:41)
[2020-10-05] MEDS: CELECOXIB 100 MG CAP PO SCH (08:00)
[2020-10-05 08:49] VITALS: BP 132/71
[2020-10-05] MEDS: DOCUSATE SODIUM 100 MG CAP PO SCH (09:00)
[2020-10-05] MEDS: GABAPENTIN 100 MG CAP PO SCH (09:00)
[2020-10-05] MEDS: FAMOTIDINE 20 MG TAB PO SCH (09:11)
[2020-10-05] MEDS: MAGNESIUM OXIDE 400 MG TAB PO SCH (09:12)
[2020-10-05] MEDS: LOTEPREDNOL ETABONATE(OPTH) 5 ML BTL OP SCH (09:12)
[2020-10-05] MEDS: PANTOPRAZOLE SOD 40 MG TABEC PO SCH (09:13)
[2020-10-05] MEDS ORDERED: TYLENOL # 31 EA PO (11:47)
[2020-10-05] MEDS ORDERED: LEVOFLOXACIN250 MG PO (11:47)
[2020-10-05] MEDS ORDERED: CELEBREX200 MG PO (11:48)
[2020-10-05] MEDS ORDERED: NEURONTIN100 MG PO (11:48)
== END 2020-10-05 12:09 | disposition home or self-care (01) | DRG 748 ==
LOC: OR 08:44 → PACU V 13:56 → MED/SURG 15:03
PROVIDERS: ADMIT Internal Medicine; ATTEND Internal Medicine
PROC: 0UU Female Reproductive System, Supplement (ICD-10-PCS; 2020-10-02)
PROC: BT141ZZ Fluoroscopy of Kidneys, Ureters and Bladder using Low Osmolar Contrast (ICD-10-PCS; 2020-10-02)
PROC: 0TCB8ZZ Extirpation of Matter from Bladder, Via Natural or Artificial Opening Endoscopic (ICD-10-PCS; 2020-10-02)
PROC: 0TSC4ZZ Reposition Bladder Neck, Percutaneous Endoscopic Approach (ICD-10-PCS; principal; 2020-10-02 11:00)
PROC: 0TSD4ZZ Reposition Urethra, Percutaneous Endoscopic Approach (ICD-10-PCS; 2020-10-02 11:00)
DX: N81.10 Cystocele, unspecified (principal); E87.6 Hypokalemia; E78.5 Hyperlipidemia, unspecified; D64.9 Anemia, unspecified; I10 Essential (primary) hypertension; G89.18 Other acute postprocedural pain; R32 Unspecified urinary incontinence; E66.9 Obesity, unspecified; Z68.30 Body mass index [BMI] 30.0-30.9, adult; I48.91 Unspecified atrial fibrillation; Z79.01 Long term (current) use of anticoagulants; I25.10 Atherosclerotic heart disease of native coronary artery without angina pectoris; Z20.822 Contact with and (suspected) exposure to COVID-19; M17.11 Unilateral primary osteoarthritis, right knee; E11.65 Type 2 diabetes mellitus with hyperglycemia; N21.0 Calculus in bladder
CPT/HCPCS: 36415; 71046; 74420; 80048; 83036; 83735; 84443; 85025; 93005; C1752; C1758; J1100; J1580; J2001; J2270; J2405; J2543; J2710; J3010; U0002